=== PATIENT | male | born 1975 | race Caucasian/White ===

== ENCOUNTER 2017-12-23 14:36 | Day surgery (SDC) | payer BC ==
[~2017-12-23 14:36] MED LIST: ROCURONIUM 50 MG INJ
[2017-12-23 15:29] LABS: ADD MAN DIFF? NO
[2017-12-23 15:40] LABS: BASOPHILS % 0.2 % (0.0-2.0); EOSINOPHILS # 0.2 10^3/ul (0.0-0.5); EOSINOPHILS % 2.8 % (0.0-7.0); HEMATOCRIT 45.4 % (42.0-52.0); HEMOGLOBIN 16.1 g/dl (14.0-18.0); LYMPHOCYTES # 3.2 10^3/ul (0.8-2.9); LYMPHOCYTES % 37.1 % (15.0-51.0); MEAN CORPUSCULAR HEMOGLOBIN 29.9 pg (29.0-33.0); MEAN CORPUSCULAR HGB CONC 35.5 g/dl (32.0-37.0); MEAN CORPUSCULAR VOLUME 84.4 fl (82.0-101.0); MEAN PLATELET VOLUME 8.9 fl (7.4-10.4); MONOCYTE # 0.5 10^3/ul (0.3-0.9); MONOCYTES % 6.1 % (0.0-11.0); NEUTROPHIL # 4.6 10^3/ul (1.6-7.5); NEUTROPHILS % 53.7 % (39.0-77.0); PLATELET COUNT 310 10^3/UL (140-415); RED BLOOD COUNT 5.38 10^6/ul (4.70-6.10); RED CELL DISTRIBUTION WIDTH 12.2 % (11.5-14.5)
[2017-12-23 15:40] LABS: WHITE BLOOD COUNT 8.5 10^3/ul (4.8-10.8)
[2017-12-23 15:53] LABS: INR 1.02; PROTIME 13.5 Sec (11.9-14.9); PT RATIO 1.1
[2017-12-23 15:54] LABS: PARTIAL THROMBOPLASTIN TIME 28.3 Sec (25.0-35.0)
[2017-12-23] MEDS ORDERED: CEFAZOLIN 2 GM/50 ML (PMX) 50 ML IVPB (16:30)
[2017-12-23] MEDS ORDERED: LACTATED RINGER'S 1,000 ML IV* (16:30)
[2017-12-23 16:45] LABS: ANION GAP 15 (8-16); CARBON DIOXIDE 30 mmol/L (21-31); CHLORIDE 99 mmol/L (97-110); GLUCOSE 105 mg/dl (70-220)
[2017-12-23 16:53] LABS: BLOOD UREA NITROGEN 15 mg/dl (7-20); CALCIUM 9.9 mg/dl (8.4-10.2); CREATININE 1.13 mg/dl (0.61-1.24); POTASSIUM 4.3 mmol/L (3.5-5.1); SODIUM 140 mmol/L (135-144)
[2017-12-23] MEDS ORDERED: MIDAZOLAM 1 MG/ML 2 ML INJ (17:08)
[2017-12-23] MEDS ORDERED: CEFAZOLIN 1 GM INJ (19:09)
[2017-12-23] MEDS ORDERED: PROPOFOL 20 ML (19:09)
[2017-12-23] MEDS ORDERED: ONDANSETRON 4 MG INJ (19:09)
[2017-12-23] MEDS ORDERED: LIDOCAINE 2% (SDV) 5 ML INJ (19:09)
[2017-12-23] MEDS ORDERED: HYDROmorphONE 2 MG/ML SYG (19:29)
[2017-12-23] MEDS ORDERED: FENTAnyl 50 MCG/ML VIAL (19:29)
[2017-12-23] MEDS ORDERED: ONDANSETRON 4 MG INJ IV (19:30)
[2017-12-23] MEDS ORDERED: LABETALOL HCL 20MG INJ IV (19:30)
[2017-12-23] MEDS ORDERED: DIPHENHYDRAMINE 50 MG INJ IV (19:30)
[2017-12-23] MEDS ORDERED: HYDROmorphONE (0.2 MG/ML) 10ML SYG IV (19:30)
[2017-12-23] MEDS ORDERED: MEPERIDINE 25 MG INJ IV (19:30)
[2017-12-23] MEDS: FENTAnyl 50 MCG/ML VIAL IV ×2 (19:47→20:17)
[2017-12-23] MEDS: HYDROmorphONE (0.2 MG/ML) 10ML SYG IV ×2 (19:49→20:17)
== END 2017-12-23 20:55 | disposition home or self-care (01) ==
LOC: SDS 14:36
DX: S46.211D Strain of muscle, fascia and tendon of other parts of biceps, right arm, subsequent encounter (principal); X58.XXXD Exposure to other specified factors, subsequent encounter
CPT/HCPCS: 24342; 73070; 80048; 85025; 85610; 85730